=== PATIENT | male | born 1950 | race Hispanic/Latino ===

== ENCOUNTER 2021-05-26 15:36 | Emergency (ER) | payer MEDICARE ==
[~2021-05-26] VITALS: Ht 167.6 cm; Wt 93.0 kg
[2021-05-26] MEDS ORDERED: CASIRIVIMAB/IMDEVIMAB 10 ML in SODIUM CHLORIDE 0.9% 100 ML IV ONE (16:15)
== END 2021-05-26 17:15 | disposition home or self-care (01) ==
LOC: ER 16:01
DX: R05 Cough (principal); U07.1 COVID-19; I10 Essential (primary) hypertension; E11.9 Type 2 diabetes mellitus without complications
CPT/HCPCS: 99283; J7050

== ENCOUNTER 2021-05-29 19:02 | Inpatient (IN) | payer MEDICARE ==
[~2021-05-29] VITALS: Ht 167.6 cm; Wt 93.0 kg
[2021-05-29] MEDS ORDERED: DEXAMETHASONE SOD PHOS 10 MG/1 ML VIAL IV ONE (19:30)
[2021-05-29] MEDS ORDERED: CEFTRIAXONE 2 GM in SODIUM CHLORIDE 0.9% 100 ML IV ONE (19:30)
[2021-05-29 22:01] LABS: BASOPHILS % 0.2 % (0.0-1.0); EOSINOPHILS % 0.1 % (0.0-6.0); HEMATOCRIT 42.5 % (38.2-49.6); HEMOGLOBIN 14.3 g/dL (14.0-18.0); LYMPHOCYTES # (AUTO) 0.5 (1.0-3.2); LYMPHOCYTES % 6.4 % (18.0-39.1); MEAN CORPUSCULAR HEMOGLOBIN 30.5 pg (28-32); MEAN CORPUSCULAR HGB CONC 33.6 g/dL (31-35); MEAN CORPUSCULAR VOLUME 90.6 fL (81-99); MONOCYTES # (AUTO) 0.8 (0.2-0.8); MONOCYTES % 9.7 % (4.4-11.3); NEUTROPHILS # (AUTO) 6.8 (2.1-6.9); NEUTROPHILS % 82.9 % (38.7-80.0); PLATELET COUNT 202 x10e3/uL (140-360); RED BLOOD COUNT 4.69 x10e6/uL (4.3-5.7); RED CELL DISTRIBUTION WIDTH 13.3 % (11.7-14.4)
[2021-05-29 22:25] LABS: ALANINE AMINOTRANSFERASE 13 IU/L (0-55); ALBUMIN 3.2 g/dL (3.5-5.0); ALBUMIN/GLOBULIN RATIO 0.8 (0.8-2.0); ALKALINE PHOSPHATASE 50 IU/L (40-150); BLOOD UREA NITROGEN 16 mg/dL (7-26); BUN/CREATININE RATIO 17 (6-25); CALCIUM 9.3 mg/dL (8.4-10.2); CARBON DIOXIDE 24 mmol/L (22-29); CHLORIDE 95 mmol/L (98-107); CREATINE KINASE 52 IU/L (30-200); CREATININE, SERUM 0.95 mg/dL (0.72-1.25); EST GLOMERULAR FILTRATION RATE 78 ML/MIN (60-); GLUCOSE 363 mg/dL (74-118); SODIUM 133 mmol/L (136-145)
[2021-05-29] MEDS: ASCORBIC ACID 500 MG TAB PO SCH (22:30)
[2021-05-29] MEDS ORDERED: SODIUM CHLORIDE FLUSH 10 ML SYR INJ PRN (22:45)
[2021-05-29] MEDS: ENOXAPARIN 30 MG/0.3 ML SYR SC SCH (22:45)
[2021-05-29] MEDS ORDERED: ONDANSETRON HCL INJ 2MG/ML 2ML 2 MG/ML VIAL IV PRN (22:45)
[2021-05-29] MEDS ORDERED: DEXTROSE 50% SYRINGE 50 ML IV PRN (22:45)
[2021-05-29] MEDS ORDERED: ACETAMINOPHEN 325 MG TAB PO PRN (22:45)
[2021-05-30] MEDS: INSULIN REGULAR, HUMAN 100 UNIT/1 ML SQ SCH ×5 (03:55→21:28)
[2021-05-30] MEDS ORDERED: DOCUSATE SODIUM 100 MG CAP PO PRN (05:15)
[2021-05-30] MEDS ORDERED: GUAIFENESIN/DEXTROMETHORPHAN LIQD 5 ML UDC NG PRN (05:15)
[2021-05-30] MEDS ORDERED: ZOLPIDEM TARTRATE 5 MG TAB PO PRN (05:15)
[2021-05-30 06:09] LABS: BASOPHILS % 0.2 % (0.0-1.0); HEMATOCRIT 38.5 % (38.2-49.6); HEMOGLOBIN 13.2 g/dL (14.0-18.0); LYMPHOCYTES # (AUTO) 0.4 (1.0-3.2); LYMPHOCYTES % 7.1 % (18.0-39.1); MEAN CORPUSCULAR HEMOGLOBIN 31.1 pg (28-32); MEAN CORPUSCULAR HGB CONC 34.3 g/dL (31-35); MEAN CORPUSCULAR VOLUME 90.6 fL (81-99); MONOCYTES # (AUTO) 0.1 (0.2-0.8); MONOCYTES % 2.5 % (4.4-11.3); NEUTROPHILS # (AUTO) 4.6 (2.1-6.9); NEUTROPHILS % 89.4 % (38.7-80.0); PLATELET COUNT 167 x10e3/uL (140-360); RED BLOOD COUNT 4.25 x10e6/uL (4.3-5.7); RED CELL DISTRIBUTION WIDTH 13.5 % (11.7-14.4)
[2021-05-30 06:53] LABS: ALBUMIN 2.8 g/dL (3.5-5.0); ALBUMIN/GLOBULIN RATIO 0.7 (0.8-2.0); ANION GAP 15.1 mmol/L (8-16); CALCIUM 8.7 mg/dL (8.4-10.2); CREATININE, SERUM 0.97 mg/dL (0.72-1.25); POTASSIUM 4.1 mmol/L (3.5-5.1)
[2021-05-30 07:00] LABS: CREATINE KINASE MB 0.8 ng/mL (0-5.0)
[2021-05-30] MEDS ORDERED: GUAIFENESIN/DEXTROMETHORPHAN 237 ML SYRUP PO PRN (07:30)
[2021-05-30] MEDS: ASCORBIC ACID 500 MG TAB PO SCH ×2 (08:15→16:57)
[2021-05-30] MEDS: BENZONATATE 100 MG CAP PO SCH ×3 (08:15→21:28)
[2021-05-30] MEDS: LORATADINE 10 MG TAB PO SCH (08:16)
[2021-05-30] MEDS: DEXAMETHASONE SOD PHOS 10 MG/1 ML VIAL IV SCH (08:17)
[2021-05-30] MEDS ORDERED: REMDESIVIR 200MG 200 MG IV SCH (09:00)
[2021-05-30] MEDS: ZINC SULFATE 50 MG CAP PO SCH (10:13)
[2021-05-30] MEDS: ENOXAPARIN 30 MG/0.3 ML SYR SC SCH ×2 (10:20→21:28)
[2021-05-30] MEDS ORDERED: REMDESIVIR 200MG 200 MG in SODIUM CHLORIDE 0.9% 100 ML IV ONE (12:00)
[2021-05-30 13:30] VITALS: BP 126/69
[2021-05-30 15:16] LABS: CREATINE KINASE 43 IU/L (30-200)
[2021-05-30 16:00] VITALS: BP 130/70
[2021-05-30 20:00] VITALS: BP 146/77
[2021-05-30] MEDS ORDERED: CEFTRIAXONE 2 GM in SODIUM CHLORIDE 0.9% 100 ML IV SCH (20:00)
[2021-05-30] MEDS ORDERED: SODIUM CHLORIDE 0.9% 250ML 250 ML ONE (21:27)
[2021-05-30 21:30] VITALS: BP 146/77
[2021-05-31] VITALS (8 sets, daily range): BP systolic 123–153; BP diastolic 64–79
[2021-05-31] MEDS ORDERED: INSULIN GLARGINE 100 UNITS/ML VIAL SQ SCH (07:00)
[2021-05-31 08:36] LABS: BASOPHILS % 0.2 % (0.0-1.0); EOSINOPHILS % 0.1 % (0.0-6.0); HEMATOCRIT 40.6 % (38.2-49.6); HEMOGLOBIN 13.7 g/dL (14.0-18.0); LYMPHOCYTES # (AUTO) 1.1 (1.0-3.2); LYMPHOCYTES % 8.4 % (18.0-39.1); MEAN CORPUSCULAR HEMOGLOBIN 30.2 pg (28-32); MEAN CORPUSCULAR HGB CONC 33.7 g/dL (31-35); MEAN CORPUSCULAR VOLUME 89.4 fL (81-99); MONOCYTES # (AUTO) 0.9 (0.2-0.8); MONOCYTES % 6.9 % (4.4-11.3); NEUTROPHILS # (AUTO) 10.6 (2.1-6.9); NEUTROPHILS % 83.6 % (38.7-80.0); PLATELET COUNT 287 x10e3/uL (140-360); RED BLOOD COUNT 4.54 x10e6/uL (4.3-5.7)
[2021-05-31] MEDS: LORATADINE 10 MG TAB PO SCH (08:56)
[2021-05-31] MEDS: DEXAMETHASONE SOD PHOS 10 MG/1 ML VIAL IV SCH (08:56)
[2021-05-31] MEDS: ZINC SULFATE 50 MG CAP PO SCH (08:57)
[2021-05-31] MEDS: INSULIN REGULAR, HUMAN 100 UNIT/1 ML SQ SCH (08:57)
[2021-05-31] MEDS: BENZONATATE 100 MG CAP PO SCH (08:57)
[2021-05-31] MEDS: ASCORBIC ACID 500 MG TAB PO SCH ×2 (08:57→17:05)
[2021-05-31] MEDS: ENOXAPARIN 30 MG/0.3 ML SYR SC SCH ×2 (08:58→20:29)
[2021-05-31] MEDS ORDERED: REMDESIVIR 100MG 100 MG IV SCH (09:00)
[2021-05-31 09:06] LABS: ALBUMIN/GLOBULIN RATIO 0.7 (0.8-2.0); CALCIUM 9.2 mg/dL (8.4-10.2); CREATININE, SERUM 0.94 mg/dL (0.72-1.25)
[2021-05-31 09:07] LABS: CHOL/HDL RATIO 2.4 (3.9-4.7)
[2021-05-31] MEDS ORDERED: BENZONATATE 100 MG CAP PO PRN (10:00)
[2021-05-31] MEDS: REMDESIVIR 100MG 100 MG in SODIUM CHLORIDE 0.9% 100 ML IV SCH (12:45)
[2021-05-31] MEDS: INSULIN LISPRO 100 UNIT/1 ML 3ML VIAL SQ SCH ×3 (12:45→20:48)
[2021-05-31] MEDS: CEFTRIAXONE 1 GM in SODIUM CHLORIDE 0.9% 50ML 50 ML IV SCH (19:41)
[2021-05-31] MEDS ORDERED: CLONIDINE HCL 0.1 MG TAB PO PRN (21:30)
[2021-06-01] VITALS (8 sets, daily range): BP systolic 103–169; BP diastolic 58–79
[2021-06-01 06:28] LABS: BASOPHILS % 0.2 % (0.0-1.0); EOSINOPHILS # (AUTO) 0.1 (0.0-0.4); EOSINOPHILS % 1.7 % (0.0-6.0); HEMATOCRIT 37.5 % (38.2-49.6); HEMOGLOBIN 12.2 g/dL (14.0-18.0); LYMPHOCYTES # (AUTO) 1.1 (1.0-3.2); LYMPHOCYTES % 13.5 % (18.0-39.1); MEAN CORPUSCULAR HEMOGLOBIN 29.9 pg (28-32); MEAN CORPUSCULAR HGB CONC 32.5 g/dL (31-35); MEAN CORPUSCULAR VOLUME 91.9 fL (81-99); MONOCYTES # (AUTO) 0.7 (0.2-0.8); MONOCYTES % 8.5 % (4.4-11.3); NEUTROPHILS # (AUTO) 6.2 (2.1-6.9); NEUTROPHILS % 74.8 % (38.7-80.0); PLATELET COUNT 281 x10e3/uL (140-360); RED BLOOD COUNT 4.08 x10e6/uL (4.3-5.7); RED CELL DISTRIBUTION WIDTH 13.2 % (11.7-14.4)
[2021-06-01 06:58] LABS: ALBUMIN 2.4 g/dL (3.5-5.0); ALBUMIN/GLOBULIN RATIO 0.8 (0.8-2.0); ANION GAP 11.8 mmol/L (8-16); CALCIUM 8.1 mg/dL (8.4-10.2); CREATININE, SERUM 0.77 mg/dL (0.72-1.25); POTASSIUM 3.8 mmol/L (3.5-5.1)
[2021-06-01] MEDS: ENOXAPARIN 30 MG/0.3 ML SYR SC SCH ×2 (09:46→21:10)
[2021-06-01] MEDS: INSULIN LISPRO 100 UNIT/1 ML 3ML VIAL SQ SCH ×4 (09:46→21:16)
[2021-06-01] MEDS: ASCORBIC ACID 500 MG TAB PO SCH ×2 (09:46→17:37)
[2021-06-01] MEDS: ZINC SULFATE 50 MG CAP PO SCH (09:46)
[2021-06-01] MEDS: INSULIN GLARGINE 100 UNITS/ML VIAL SQ SCH (09:46)
[2021-06-01] MEDS: DEXAMETHASONE SOD PHOS 10 MG/1 ML VIAL IV SCH (09:55)
[2021-06-01] MEDS: REMDESIVIR 100MG 100 MG in SODIUM CHLORIDE 0.9% 100 ML IV SCH (12:19)
[2021-06-01] MEDS: CEFTRIAXONE 1 GM in SODIUM CHLORIDE 0.9% 50ML 50 ML IV SCH (20:11)
[2021-06-01] MEDS ORDERED: INSULIN GLARGINE 100 UNITS/ML VIAL SQ SCH (21:00)
[2021-06-02] VITALS (7 sets, daily range): BP systolic 139–150; BP diastolic 70–81
[2021-06-02 05:20] LABS: BASOPHILS % 0.3 % (0.0-1.0); EOSINOPHILS # (AUTO) 0.1 (0.0-0.4); EOSINOPHILS % 2.3 % (0.0-6.0); HEMATOCRIT 36.4 % (38.2-49.6); HEMOGLOBIN 12.1 g/dL (14.0-18.0); LYMPHOCYTES # (AUTO) 1.3 (1.0-3.2); LYMPHOCYTES % 21.8 % (18.0-39.1); MEAN CORPUSCULAR HEMOGLOBIN 30.3 pg (28-32); MEAN CORPUSCULAR HGB CONC 33.2 g/dL (31-35); MONOCYTES # (AUTO) 0.6 (0.2-0.8); MONOCYTES % 10.1 % (4.4-11.3); NEUTROPHILS # (AUTO) 3.9 (2.1-6.9); NEUTROPHILS % 63.1 % (38.7-80.0); PLATELET COUNT 302 x10e3/uL (140-360); RED CELL DISTRIBUTION WIDTH 13.1 % (11.7-14.4)
[2021-06-02 06:09] LABS: ALBUMIN 2.6 g/dL (3.5-5.0); ALBUMIN/GLOBULIN RATIO 0.9 (0.8-2.0); ANION GAP 11.8 mmol/L (8-16); CALCIUM 8.3 mg/dL (8.4-10.2); CREATININE, SERUM 0.73 mg/dL (0.72-1.25); POTASSIUM 3.8 mmol/L (3.5-5.1)
[2021-06-02] MEDS: INSULIN GLARGINE 100 UNITS/ML VIAL SQ SCH (08:58)
[2021-06-02] MEDS: INSULIN LISPRO 100 UNIT/1 ML 3ML VIAL SQ SCH ×3 (08:58→16:25)
[2021-06-02] MEDS: ASCORBIC ACID 500 MG TAB PO SCH ×2 (08:58→16:18)
[2021-06-02] MEDS: ZINC SULFATE 50 MG CAP PO SCH (08:58)
[2021-06-02] MEDS: ENOXAPARIN 30 MG/0.3 ML SYR SC SCH ×2 (08:59→22:29)
[2021-06-02] MEDS: DEXAMETHASONE SOD PHOS 10 MG/1 ML VIAL IV SCH (08:59)
[2021-06-02] MEDS: REMDESIVIR 100MG 100 MG in SODIUM CHLORIDE 0.9% 100 ML IV SCH (13:07)
[2021-06-02] MEDS ORDERED: ONDANSETRON HCL 4 MG ORAL DISINTEGRATING TAB PO PRN (18:15)
[2021-06-02] MEDS: CEFTRIAXONE 1 GM in SODIUM CHLORIDE 0.9% 50ML 50 ML IV SCH (20:00)
[2021-06-02] MEDS ORDERED: INSULIN GLARGINE 100 UNITS/ML VIAL SQ SCH (21:00)
[2021-06-03] VITALS: BP 166/88
[2021-06-03 04:00] VITALS: BP 158/75
[2021-06-03] MEDS: INSULIN LISPRO 100 UNIT/1 ML 3ML VIAL SQ SCH ×2 (04:11→08:54)
[2021-06-03 07:30] VITALS: BP 137/76
[2021-06-03 07:54] VITALS: BP 137/76
[2021-06-03] MEDS: DEXAMETHASONE SOD PHOS 10 MG/1 ML VIAL IV SCH (08:54)
[2021-06-03] MEDS: INSULIN GLARGINE 100 UNITS/ML VIAL SQ SCH (08:54)
[2021-06-03] MEDS: ASCORBIC ACID 500 MG TAB PO SCH (08:54)
[2021-06-03] MEDS: ZINC SULFATE 50 MG CAP PO SCH (08:54)
[2021-06-03] MEDS: ENOXAPARIN 30 MG/0.3 ML SYR SC SCH (08:55)
[2021-06-03 11:45] VITALS: BP 138/70
[2021-06-03] MEDS ORDERED: Insulin Glargine SQ (11:52)
[2021-06-03] MEDS ORDERED: DECADRON4 M1 PO (11:52)
[2021-06-03] MEDS ORDERED: ASCORBIC ACID500 MG PO (11:52)
[2021-06-03] MEDS: REMDESIVIR 100MG 100 MG in SODIUM CHLORIDE 0.9% 100 ML IV SCH (12:52)
== END 2021-06-03 15:15 | disposition home or self-care (01) | DRG 177 ==
LOC: ER 19:28 → ERHOLD 22:36 → MED/SURG3 05-30 13:20
PROVIDERS: ADMIT Internal Medicine; ATTEND Internal Medicine
PROC: 8E0ZXY6 Isolation (ICD-10-PCS; 2021-05-29)
PROC: XW033E5 Introduction of Remdesivir Anti-infective into Peripheral Vein, Percutaneous Approach, New Technology Group 5 (ICD-10-PCS; principal; 2021-05-30)
DX: U07.1 COVID-19 (principal); J12.82 Pneumonia due to coronavirus disease 2019; E87.1 Hypo-osmolality and hyponatremia; E11.65 Type 2 diabetes mellitus with hyperglycemia; R09.02 Hypoxemia; E66.9 Obesity, unspecified; Z68.33 Body mass index [BMI] 33.0-33.9, adult
CPT/HCPCS: 36415; 71045; 80053; 80061; 82550; 82553; 82948; 83036; 84484; 85025; 87040; 93005; 99285; J0456; J0696; J1100; J1650; J1815; J1817; J7050; U0002